=== PATIENT | male | born 1985 | race African-American/Black ===

== ENCOUNTER 2021-11-27 22:58 | Inpatient (IN) ==
[2021-11-27] MEDS ORDERED: HYDROmorphone 1 MG/1 ML SYRINGE IV STA (23:13)
[2021-11-27] MEDS ORDERED: ONDANSETRON 4 MG/2 ML VIAL ONE (23:19)
[2021-11-27] MEDS ORDERED: ONDANSETRON 4 MG/2 ML VIAL IV STA (23:24)
[2021-11-27 23:28] LABS: Basophils % 0.2 % (0.0-0.8); Eosinophils % 0.3 % (0.00-10.9); Hematocrit 42.1 VOL% (42.0-52.0); Hemoglobin 13.6 GM/DL (14.0-18.0); Immature Granulocytes % 0.2 %; Immature Granulocytes Absolute 0.02 #; Lymphocytes # 2.2 10*3/uL (1.4-4.0); Lymphocytes % 24.7 % (21.2-54.2); Mean Corpuscular HGB Conc 32.3 GM/DL (32-36); Mean Corpuscular Volume 83.4 FL (87-102); Mean Platelet Volume 9.1 FL (9.6-12.0); Monocytes # 0.9 10*3/uL (0.11-0.8); Monocytes % 10.2 % (1.7-12.7); Neutrophils % 64.4 % (38.7-73.9); Platelet Count 255 T/CUMM (130-400); Red Blood Count 5.05 MC/CUMM (3.8-5.5); White Blood Count 8.9 T/CUMM (4-12)
[2021-11-27] MEDS ORDERED: DIAZEPAM 10 MG/2 ML SYRINGE IV STA (23:32)
[2021-11-27] MEDS ORDERED: DIAZEPAM 10 MG/2 ML SYRINGE ONE (23:34)
[2021-11-27 23:44] LABS: Albumin 3.4 G/DL (3.4-5.0); Bilirubin,Total 0.9 MG/DL (0.20-1.00); Calcium 9.4 MG/DL (8.5-10.1); Osmolality,Calculated 265.2 MOS/KG (273-304); Potassium 3.9 MMOL/L (3.5-5.1); Total Protein 8.7 G/DL (6.4-8.2)
[2021-11-28 00:13] LABS: INR 1.1; Partial Thromboplastin Time 30.7 SECS (23.8-32.1)
[2021-11-28] MEDS ORDERED: LEVOFLOXACIN INJ 750 MG/150 ML PREMIX IV STA (01:43)
[2021-11-28] MEDS ORDERED: ENOXAPARIN 100 MG/ML SYRINGE SUBCUT ONE (02:05)
[2021-11-28] MEDS ORDERED: ONDANSETRON 4 MG/2 ML VIAL IV PRN (02:28)
[2021-11-28] MEDS ORDERED: ALUMINUM/MAGNES/SIMETH MAX STR 30 ML UDCUP PO PRN (02:28)
[2021-11-28] MEDS ORDERED: hydrALAZINE 20 MG/1 ML VIAL IV PRN (02:28)
[2021-11-28] MEDS ORDERED: GLUCAGON 1 MG VIAL IM PRN (02:28)
[2021-11-28] MEDS ORDERED: ACETAMINOPHEN 325 MG TABLET PO PRN (02:28)
[2021-11-28] MEDS ORDERED: DEXTROSE 10% 250 ML BAG IV PRN (03:11)
[2021-11-28] MEDS: KETOROLAC 30 MG/1 ML VIAL IV SCH ×4 (03:42→20:05)
[2021-11-28] MEDS: SODIUM CHLORIDE 0.9% 1,000 ML IV SCH ×2 (03:42→14:56)
[2021-11-28] MEDS: AZITHROMYCIN INJ 500 MG in SODIUM CHLORIDE 0.9% 250 ML IV SCH (03:45)
[2021-11-28 03:52] LABS: Bacteria,Urine Occasional /HPF (Few); Mucus,Urine Occasional /LPF (Occasional); RBC,Urine 1 /HPF (0-4); Squamous Epithelial Cell,Urine Occasional /HPF (0-10)
[2021-11-28 03:54] LABS: Bilirubin,Urine Negative (Negative); Blood, Urine Negative (Negative); Glucose,Urine (UA) Negative (Negative); Ketones,Urine Trace mg/dL (Negative); Nitrite,Urine Negative (Negative); Protein,Urine Negative (Negative); Urine Appearance Clear (Clear); Urine Color Yellow (Yellow); Urine Specific Gravity 1.015 (1.001-1.035); Urine pH 5.5 (4.5-8.0)
[2021-11-28 04:29] LABS: INR 1.1; PT Patient Result 12.5 SECS (10.5-12.0); Partial Thromboplastin Time 36.9 SECS (23.8-32.1)
[2021-11-28] MEDS: cefTRIAXone 1,000 MG in SODIUM CHLORIDE 0.9% 100 ML IV SCH (04:42)
[2021-11-28] MEDS: ALBUTEROL/IPRATROPIUM 3 ML NEB RESP TX SCH ×3 (07:37→19:05)
[2021-11-28] MEDS: DOCUSATE SODIUM 100 MG CAPSULE PO SCH ×2 (08:30→20:05)
[2021-11-28] MEDS: hydrALAZINE 10 MG TABLET PO SCH ×2 (08:30→20:05)
[2021-11-28] MEDS: PANTOPRAZOLE 40 MG VIAL IV SCH (08:31)
[2021-11-28] MEDS: APIXABAN 5 MG TABLET PO SCH (20:05)
[2021-11-29] MEDS: ALBUTEROL/IPRATROPIUM 3 ML NEB RESP TX SCH ×4 (01:00→18:44)
[2021-11-29] MEDS: SODIUM CHLORIDE 0.9% 1,000 ML IV SCH ×2 (01:42→13:18)
[2021-11-29] MEDS: AZITHROMYCIN INJ 500 MG in SODIUM CHLORIDE 0.9% 250 ML IV SCH (02:42)
[2021-11-29 03:39] LABS: Basophils % 0.3 % (0.0-0.8); Eosinophils # 0.1 10*3/uL (0.0-0.87); Eosinophils % 0.9 % (0.00-10.9); Hematocrit 35.8 VOL% (42.0-52.0); Hemoglobin 11.1 GM/DL (14.0-18.0); Immature Granulocytes % 0.3 %; Immature Granulocytes Absolute 0.02 #; Lymphocytes # 1.9 10*3/uL (1.4-4.0); Lymphocytes % 28.8 % (21.2-54.2); Mean Corpuscular Volume 86.1 FL (87-102); Mean Platelet Volume 8.7 FL (9.6-12.0); Monocytes % 15.3 % (1.7-12.7); Neutrophils % 54.4 % (38.7-73.9); Platelet Count 179 T/CUMM (130-400); Red Blood Count 4.16 MC/CUMM (3.8-5.5); Red Cell Distribution Width 12.9 % (9.3-17.3); White Blood Count 6.4 T/CUMM (4-12)
[2021-11-29 03:59] LABS: Calcium 8.3 MG/DL (8.5-10.1); Osmolality,Calculated 274.7 MOS/KG (273-304); Potassium 3.5 MMOL/L (3.5-5.1)
[2021-11-29] MEDS: cefTRIAXone 1,000 MG in SODIUM CHLORIDE 0.9% 100 ML IV SCH (04:13)
[2021-11-29] MEDS: APIXABAN 5 MG TABLET PO SCH ×2 (08:05→20:37)
[2021-11-29] MEDS: DOCUSATE SODIUM 100 MG CAPSULE PO SCH ×2 (08:05→20:37)
[2021-11-29] MEDS: hydrALAZINE 10 MG TABLET PO SCH ×2 (08:05→20:37)
[2021-11-29] MEDS: PANTOPRAZOLE 40 MG VIAL IV SCH (08:08)
[2021-11-30] MEDS: ALBUTEROL/IPRATROPIUM 3 ML NEB RESP TX SCH ×5 (00:55→23:40)
[2021-11-30] MEDS: AZITHROMYCIN INJ 500 MG in SODIUM CHLORIDE 0.9% 250 ML IV SCH (02:13)
[2021-11-30 03:54] LABS: Basophils % 0.2 % (0.0-0.8); Eosinophils # 0.1 10*3/uL (0.0-0.87); Eosinophils % 1.9 % (0.00-10.9); Hematocrit 35.2 VOL% (42.0-52.0); Hemoglobin 11.1 GM/DL (14.0-18.0); Immature Granulocytes % 0.3 %; Immature Granulocytes Absolute 0.02 #; Lymphocytes # 2.1 10*3/uL (1.4-4.0); Lymphocytes % 33.2 % (21.2-54.2); Mean Corpuscular HGB Conc 31.5 GM/DL (32-36); Mean Platelet Volume 9.4 FL (9.6-12.0); Monocytes # 0.6 10*3/uL (0.11-0.8); Monocytes % 8.9 % (1.7-12.7); Neutrophils % 55.5 % (38.7-73.9); Platelet Count 193 T/CUMM (130-400); Red Blood Count 4.14 MC/CUMM (3.8-5.5); Red Cell Distribution Width 12.9 % (9.3-17.3); White Blood Count 6.4 T/CUMM (4-12)
[2021-11-30 04:15] LABS: Calcium 8.4 MG/DL (8.5-10.1); Osmolality,Calculated 274.7 MOS/KG (273-304); Potassium 3.3 MMOL/L (3.5-5.1)
[2021-11-30] MEDS: cefTRIAXone 1,000 MG in SODIUM CHLORIDE 0.9% 100 ML IV SCH (04:31)
[2021-11-30] MEDS: PANTOPRAZOLE 40 MG VIAL IV SCH (09:17)
[2021-11-30] MEDS: hydrALAZINE 10 MG TABLET PO SCH ×2 (09:17→20:56)
[2021-11-30] MEDS: POTASSIUM CHLORIDE 20 MEQ TABLET PO SCH ×2 (09:17→12:06)
[2021-11-30] MEDS: APIXABAN 5 MG TABLET PO SCH ×2 (09:18→20:56)
[2021-11-30] MEDS: DOCUSATE SODIUM 100 MG CAPSULE PO SCH ×2 (09:18→20:56)
[2021-11-30] MEDS ORDERED: POTASSIUM CHLORIDE 20 MEQ TABLET PO SCH (12:00)
[2021-12-01] MEDS: AZITHROMYCIN INJ 500 MG in SODIUM CHLORIDE 0.9% 250 ML IV SCH (03:36)
[2021-12-01] MEDS: cefTRIAXone 1,000 MG in SODIUM CHLORIDE 0.9% 100 ML IV SCH (05:49)
[2021-12-01] MEDS: ALBUTEROL/IPRATROPIUM 3 ML NEB RESP TX SCH (07:18)
[2021-12-01] MEDS: hydrALAZINE 10 MG TABLET PO SCH (09:17)
[2021-12-01] MEDS: DOCUSATE SODIUM 100 MG CAPSULE PO SCH (09:17)
[2021-12-01] MEDS: PANTOPRAZOLE 40 MG VIAL IV SCH (09:17)
[2021-12-01] MEDS: APIXABAN 5 MG TABLET PO SCH (09:17)
[2021-12-01 12:21] VITALS: BP 132/68
[2021-12-02 14:56] LABS: M. Tuberculosis PCR Result Negative (Negative); M. Tuberculosis PCR Source SPUTUM
[2021-12-05] MEDS ORDERED: APIXABAN 5 MG TABLET PO SCH (21:00)
== END 2021-12-01 14:48 | disposition home or self-care (01) | DRG 175 ==
LOC: N.EDINP 22:58 → N.ED 22:58 → SUATTDRO 11-28 08:35 → N.CC 11-28 11:36 → N.TELEN 11-30 17:06
PROVIDERS: ADMIT Internal Medicine; ATTEND Internal Medicine